=== PATIENT | male | born 1965 | race Two or more races ===

== ENCOUNTER 2017-10-08 06:15 | Emergency (ER) | payer SELFPAY ==
[2017-10-08 06:25] VITALS: BP 150/94; PULSE 82; RESP 20; TEMP 36.4; O2SAT 99; BMI 30.5
--- NOTE | 2017-10-08 06:32 | HMH.EDBACK ---
ED Disposition Clinical Impression: Right flank pain Disposition: Home, Self-Care Condition on Discharge: Good Instructions: DI for Low Back Pain Time of Disposition: 07:59 - Critical Care Critical Care Time: No Attestation: On , the high probability of a clinically significant, sudden or life threatening deterioration of the following system(s) required my full and direct attention, intervention and personal management. The time I documented below is in addition to time spent performing reported procedures but includes the following listed in this critical care notation. Medical Decision Making - Medical Records Medical records reviewed: Yes: I reviewed the patient's medical records. Vital Signs: 10/08/17 06:25 Temperature 97.5 F L Temperature Source Oral Pulse Rate [Right Radial] 82 Respiratory Rate 20 Blood Pressure [Right Arm] 150/94 Blood Pressure Mean [Right Arm] 112 Blood Pressure Source [Right Arm] Automatic Cuff Blood Pressure Position [Right Arm] Sitting 02 Sat by Pulse Oximetry 99 Oxygen Delivery Method Room Air - Lab Data Lab results reviewed: Yes: I reviewed the patient's lab results. Lab Results 10/08/17 06:55: WBC 7.5, RBC 5.19, Hgb 15.4, Hct 46.9, MCV 90.5, MCH 29.6, MCHC 32.8, RDW 12.5, Plt Count 343, MPV 7.6, Neut % (Auto) 65.7, Lymph % (Auto) 26.5, [place] % (Auto) 4.2, Eos % (Auto) 2.7, Baso % (Auto) 1.0, Neut # (Auto) 4.9, Lymph # (Auto) 2.0, [place] # (Auto) 0.3, Eos # (Auto) 0.2, Baso # (Auto) 0.1 10/08/17 06:55: Sodium 139, Potassium 4.2, Chloride 103, Carbon Dioxide 25, Anion Gap 15.2 H, BUN 18, Creatinine 1.12, Estimated Creat Clear 94, Estimated GFR 68, Est GFR ( Amer) 83, Glucose 209 H, Calcium 8.7, Total Bilirubin 0.4, AST 39 H, ALT 95 H, Alkaline Phosphatase 108, Total Protein 7.9, Albumin 4.2, Globulin 3.7 H, Albumin/Globulin Ratio 1.1, Amylase 66, Lipase 156 Result diagrams: 10/08/17 06:55 10/08/17 06:55 Orders (Tests/Meds): ED MEDICATIONS Generic Name Dose Route Start Last Admin Trade Name Freq PRN Reason Stop Dose Admin Lactated Ringer's 1,000 mls @ 999 mls/hr 10/08/17 08:00 Lactated Ringer's 1000 Ml Bag IV 10/08/17 09:00 .Q1H1M RON Discontinued Medications Generic Name Dose Route Start Last Admin Trade Name Freq PRN Reason Stop Dose Admin Lactated Ringer's 1,000 mls @ 999 mls/hr 10/08/17 06:45 10/08/17 06:47 Lactated Ringer's 1000 Ml Bag IV 10/08/17 07:45 999 mls/hr .Q1H1M RON Administration Ketorolac Tromethamine 30 mg 10/08/17 06:33 10/08/17 06:45 Toradol 30mg/Ml Vial IV 10/08/17 06:34 30 mg ONCE ONE Administration Morphine Sulfate 4 mg 10/08/17 06:34 10/08/17 06:47 Morphine 4mg/Ml Syringe IV 10/08/17 06:35 4 mg ONCE ONE Administration Ondansetron HCl 4 mg 10/08/17 06:33 10/08/17 06:43 Zofran 4mg/2ml Vial IV 10/08/17 06:34 4 mg ONCE ONE Administration ORDERS Category Date Time Status Urinalysis and Microscopic Stat Lab 10/08/17 06:33 Ordered - CT Data CT Scan: Abdomen, Pelvis Time Received: 08:[address] Reviewed: Yes: I have reviewed the patient's CT results Findings Narrative: Please refer to the radiologist's report - Jah Inquiry Pt receiving controlled substance: No - Reevaluation(s) Time: 08:00 Reevaluation #1: Care transferred to Dr. Al, pending urinalysis [facility] History I have reviewed the patient's past medical history: Yes Medical History: Reports:: Diabetes Mellitus Type 2 - *Social History Alcohol Intake: never - Psychiatric History Expresses thoughts of harming self/others: None Suicide Plan Description: No Plan ROS Obtained: Yes All systems reviewed & no additional complaints - Gastrointestinal Gastrointestingal: Reports: nausea, vomiting - Genitourinary Male Genitourinary: Reports flank pain (right) Physical Exam - General General appearance: alert, in distress (moderate) - Head Head exam: atraumatic, normocephalic, nor
--- NOTE | 2017-10-08 06:34 | CT_ITS ---
CT abdomen pelvis wo con CLINICAL INDICATION: Right flank pain and right lower quadrant pain with vomiting ITS.REASON: back pain ORDERING PHYSICIAN: Lavell Nguyen MD PATIENT AGE: 52 years COMPARISON: None TECHNIQUE: Axial images obtained with sagittal and coronal reformats. PROCEDURE: Oral Contrast: None IV Contrast: None . FINDINGS: Lower thorax: Small air bubbles noted in the right ventricle and could be due to recent venous catheterization. Gas is present in the distal esophagus suggesting reflux. Mild hepatic steatosis. No focal liver lesion demonstrated. The spleen, adrenal glands, pancreas, and gallbladder have an unremarkable unenhanced CT appearance. No obstructing renal or ureteral calculi. No hydronephrosis. There is mild thickening of the urinary bladder wall which may in part be due to nondistention. Prior appendectomy. Scattered diverticula are present within the descending and sigmoid colon with no evidence of diverticulitis. No intestinal obstruction or free air. No acute bony anomalies. IMPRESSION: No acute finding. No obstructing renal or ureteral calculi Nonacute findings as detailed above.
[2017-10-08 07:03] LABS: Basophils # 0.1 K/mm3 (0-0.2); Eosinophils # 0.2 K/mm3 (0.0-0.4); Eosinophils % 2.7 % (0.1-12.0); Hematocrit 46.9 % (42.0-52.0); Hemoglobin 15.4 g/dL (14.1-18.0); Lymphocytes % 26.5 K/mm3 (10-50); Mean Corpuscular HGB Conc 32.8 g/dL (31.8-35.4); Mean Corpuscular Hemoglobin 29.6 pg (27.0-31.2); Mean Corpuscular Volume 90.5 fl (80-94); Mean Platelet Volume 7.6 fl (7.4-10.4); Monocytes # 0.3 K/mm3 (0.1-1.0); Monocytes % 4.2 % (1.7-9.3); Neutrophils # 4.9 K/mm3 (1.8-7.8); Neutrophils % 65.7 % (37.0-80.0); Platelet Count 343 K/mm3 (142-424); Red Blood Count 5.19 M/mm3 (4.60-6.20); Red Cell Distribution Width 12.5 % (11.5-17.5); White Blood Count 7.5 K/mm3 (4.8-10.8)
[2017-10-08 07:15] LABS: Alanine Aminotransferase 95 U/L (12-78); Albumin Level 4.2 gm/dL (3.4-5.0); Albumin/Globulin Ratio 1.1 (1.1-1.8); Alkaline Phosphatase 108 U/L (46-116); Amylase 66 U/L (25-125); Anion Gap 15.2 mEq/L (5-15); Aspartate Amino Transferase 39 U/L (15-37); Bilirubin,Total 0.4 mg/dL (0.2-1.0); Blood Urea Nitrogen 18 mg/dL (7-18); Calcium 8.7 mg/dL (8.5-10.1); Carbon Dioxide 25 mmol/L (21.0-32.0); Chloride 103 mmol/L (98-107); Creatinine Clearance Estimated 94 mL/min (0-300); Creatinine,Serum 1.12 mg/dL (0.70-1.30); Estimated Glomerular Filt Rate 68 ml/min (>60); GFR (African American) 83 ML/MIN (>60); Globulin 3.7 gm/dl (1.3-3.2); Glucose 209 mg/dL (74-106); Lipase 156 u/L (73-393); Potassium 4.2 mmoL/L (3.5-5.1); Sodium 139 mmol/L (136-145); Total Protein,Serum 7.9 gm/dL (6.4-8.2)
[2017-10-08 09:01] LABS: Microscopic, Urine URINE MICROSCOPIC (MICROSCOPIC)
[2017-10-08 09:03] LABS: Appearance,Urine CLEAR (Clear); Bilirubin,Urine Negative (Negative); Blood, Urine LARGE (Negative); Color,Urine YELLOW (Yellow); Glucose,Urine (UA) Negative (Negative); Ketones,Urine Negative (Negative); Leukocyte Esterase,Urine Negative (Negative); Nitrate,Urine Negative (Negative); Protein,Urine TRACE (Negative); Specific Gravity, Urine 1.025 (1.005-1.030); Urobilinogen,Urine 0.2 EU/dl (0.2)
[2017-10-08 09:22] LABS: Bacteria,Urine 2+ /lpf; Calcium Oxalate Crystals,Urine Trace /lpf; Mucus,Urine 2+ /lpf; RBC,Urine 20-50 #/hpf (0-3); Squamous Epithelial Cell,Urine Occasional #/hpf (0-5); WBC,Urine Occasional #/hpf (0-3)
[2017-10-08 10:25] VITALS: BP 120/78; PULSE 63; RESP 20; TEMP 36.7; O2SAT 96
== END 2017-10-08 10:25 | disposition home or self-care (01) ==
PROVIDERS: Emergency Medicine; Emergency Provider Emergency Medicine; PCP Family Medicine
DX: R10.9 Unspecified abdominal pain (principal); E11.9 Type 2 diabetes mellitus without complications; Z79.84 Long term (current) use of oral hypoglycemic drugs; Z79.899 Other long term (current) drug therapy
CPT/HCPCS: 74176; 80053; 81001; 82150; 83690; 85025; 87086; 96365; 96375; 99282; 99283; J2405

== ENCOUNTER 2020-04-13 18:37 | Emergency (ER) | payer MEDICAID, SELFPAY ==
[2020-04-13 18:40] VITALS: BP 134/81; PULSE 100; RESP 16; TEMP 36.6; O2SAT 98; BMI 28.3
--- NOTE | 2020-04-13 18:43 | HMH.EDGENADL ---
ED Disposition Condition on Discharge: Fair - Critical Care Critical Care Time: No <AndreBoy vigil - Last Filed: 04/13/20 20:11> <Connor Song - Last Filed: 04/13/20 21:31> Clinical Impression: Acute kidney injury, Diabetes 1.5, managed as type 2 Vomiting Qualifiers: Vomiting type: unspecified Vomiting Intractability: non-intractable Nausea presence: with nausea Qualified Code(s): R11.2 - Nausea with vomiting, unspecified Leukocytosis Qualifiers: Leukocytosis type: unspecified Qualified Code(s): D72.829 - Elevated white blood cell count, unspecified Disposition: Home, Self-Care Instructions: DI for Nausea -- Adult Additional Instructions: call pcp wednesday and hold metformin wednesday and fluids Referrals: PCP,Skylar [Primary Care Provider] - Attestation: On 04/13/20, the high probability of a clinically significant, sudden or life threatening deterioration of the following system(s) required my full and direct attention, intervention and personal management. The time I documented below is in addition to time spent performing reported procedures but includes the following listed in this critical care notation. Medical Decision Making - Medical Records Medical records reviewed: Yes: I reviewed the patient's medical records. - Jah Inquiry Pt receiving controlled substance: No - Lab Data Result diagrams: 04/13/20 19:00 04/13/20 19:00 <Boy Holly - Last Filed: 04/13/20 20:11> - Lab Data Lab results reviewed: Yes: I reviewed the patient's lab results. Result diagrams: 04/13/20 19:00 04/13/20 19:00 - CT Data CT Scan: Abdomen, Pelvis Time Received: 20:[address] Reviewed: Yes: I have viewed the radiologist's interpretation Preliminary Findings: Normal/NAD <Connor Song - Last Filed: 04/13/20 21:31> Vital Signs: 04/13/20 18:40 04/13/20 19:19 04/13/20 19:30 Temperature 97.9 F Temperature Source Oral Pulse Rate [Left Radial] 100 H 88 Respiratory Rate 16 18 Blood Pressure [Right Arm] 134/81 119/81 118/80 Blood Pressure Mean [Right Arm] 98 93 92 Blood Pressure Source [Right Arm] Automatic Cuff Automatic Cuff Blood Pressure Position [Right Arm] Sitting Supine 02 Sat by Pulse Oximetry 98 99 99 Oxygen Delivery Method Room Air Room Air - Lab Data Lab Results 04/13/20 18:50: POC Glucose 167 H 04/13/20 19:00: WBC 17.5 H, RBC 5.86, Hgb 18.1 H, Hct 53.6 H, MCV 91.4, MCH 30.9, MCHC 33.7, RDW 13.1, Plt Count 332, MPV 7.5, Neut % (Auto) 86.5 H, Lymph % (Auto) 10.2, [place] % (Auto) 2.5, Eos % (Auto) 0.2, Baso % (Auto) 0.6, Neut # (Auto) 15.1 H, Lymph # (Auto) 1.8, [place] # (Auto) 0.4, Eos # (Auto) 0.0, Baso # (Auto) 0.1, Total Counted 100, Neutrophils % (Manual) 79 H, Band Neutrophils % 6.0, Lymphocytes % (Manual) 13, Monocytes % (Manual) 1 L, Eosinophils % (Manual) 1, Platelet Estimate Normal, RBC Morphology Normal 04/13/20 19:00: Sodium 147 H, Potassium 5.0, Chloride 102, Carbon Dioxide 23, Anion Gap 27.0 H, BUN 30 H, Creatinine 2.10 H, Estimated Creat Clear 46, Estimated GFR 33 L, Est GFR ( Amer) 40 L, Glucose 188 H, Calcium 11.5 H, Total Bilirubin 1.4 H, AST 42, ALT 50, Alkaline Phosphatase 151 H, Troponin I < 0.01, Total Protein 10.9 H, Albumin 5.8 H, Globulin 5.1 H, Albumin/Globulin Ratio 1.1 04/13/20 19:00: Amylase 121 H, Lipase 122 04/13/20 19:00: Acetone Level None detected 04/13/20 19:44: Urine Color Dk yellow, Urine Appearance Sl cloudy, Urine pH 5.5, Ur Specific [place] >= 1.030, Urine Protein 1+, Urine Glucose (UA) Negative, Urine Ketones 1+, Urine Blood Negative, Urine Nitrate Negative, Urine Bilirubin 1+ A, Urine Urobilinogen 0.2, Ur Leukocyte Esterase Negative, Urine WBC 5-10, Ur Squamous Epith Cells 3-5, Amorphous Sediment Trace, Hyaline Casts 20-50, Urine Mucus 1+ Orders (Tests/Meds): ED MEDICATIONS Generic Name Dose Route Start Last Admin Trade Name Freq PRN Reason Stop Dose Admin Sodium Chloride 1,000 mls @ 999 mls/hr 04/13/20 19:45 04/13/20 19:44 Sod C
[2020-04-13 18:53] LABS: POC Glucose,Bedside 167 (70-110)
--- NOTE | 2020-04-13 18:54 | ECG_ITS ---
APPROVED REPORT Exam: Resting ECG HR:82 bpm ECG Measurements Heart Rate 82 AXES WI 188 P 60 QRSd 96 QRS 20 QT 380 T -14 QTc 443 <Conclusion> Normal sinus rhythm T wave abnormality, consider inferior/lateral ischemia Abnormal ECG Electronically signed by : Andre York, 04/15/2020 09:08:14
[2020-04-13 19:19] VITALS: BP 119/81; O2SAT 99
[2020-04-13 19:26] LABS: Basophils # 0.1 K/mm3 (0-0.2); Basophils % 0.6 % (0.1-2.0); Eosinophils % 0.2 % (0.1-12.0); Lymphocytes # 1.8 K/mm3 (0.7-4.5); Lymphocytes % 10.2 % (10-50); Mean Corpuscular HGB Conc 33.7 g/dL (31.8-35.4); Mean Corpuscular Hemoglobin 30.9 pg (27.0-31.2); Mean Corpuscular Volume 91.4 fl (80-94); Mean Platelet Volume 7.5 fl (7.4-10.4); Monocytes # 0.4 K/mm3 (0.1-1.0); Monocytes % 2.5 % (1.7-9.3); Neutrophils # 15.1 K/mm3 (1.8-7.8); Neutrophils % 86.5 % (37.0-80.0); Platelet Count 332 K/mm3 (142-424); Red Blood Count 5.86 M/mm3 (4.60-6.20); Red Cell Distribution Width 13.1 % (11.5-17.5); White Blood Count 17.5 K/mm3 (4.8-10.8)
[2020-04-13 19:28] LABS: Alanine Aminotransferase 50 U/L (12-78); Albumin Level 5.8 g/dl (3.5-5.0); Albumin/Globulin Ratio 1.1 (1.1-1.8); Alkaline Phosphatase 151 U/L (38-126); Aspartate Amino Transferase 42 U/L (17-59); Bilirubin,Total 1.4 mg/dl (0.2-1.3); Blood Urea Nitrogen 30 mg/dl (9-20); Calcium 11.5 mg/dl (8.4-10.2); Carbon Dioxide 23 mmol/L (22.0-30.0); Chloride 102 mmol/L (98-107); Creatinine Clearance Estimated 46 mL/min (50-200); Estimated Glomerular Filt Rate 33 ml/min (>60); GFR (African American) 40 ML/MIN (>60); Globulin 5.1 g/dL (1.3-3.2); Glucose 188 mg/dl (74-100); Sodium 147 mmol/L (136-145); Total Protein,Serum 10.9 g/dl (6.3-8.2)
[2020-04-13 19:30] VITALS: BP 118/80; PULSE 88; RESP 18; O2SAT 99
[2020-04-13 19:34] LABS: Hematocrit 53.6 % (42.0-52.0); Hemoglobin 18.1 g/dL (14.1-18.0)
[2020-04-13 19:35] LABS: MANUAL DIFFERENTIAL MANUAL DIFFERENTIAL (MANUAL DIFF)
[2020-04-13 19:42] LABS: Eosinophils % 1 % (0-3); Lymphocytes % 13 % (10-50); Monocytes % 1 % (2-9); Neutrophils % 79 % (42-76); Platelet Estimate Normal; RBC Morphology Normal; Total Cells Counted 100
[2020-04-13 19:43] LABS: Troponin I < 0.01 ng/ml (0.00-0.034)
[2020-04-13 19:47] LABS: Microscopic, Urine URINE MICROSCOPIC (MICROSCOPIC)
--- NOTE | 2020-04-13 19:48 | CT_ITS ---
Procedure: CT ABDOMEN PELVIS WO CON Patient Age:54Y CLINICAL INDICATION: vomiting, leukocytosis COMPARISON: [facility] CT abdomen pelvis [facility] from 10/08/2017 TECHNIQUE: Axial images obtained with sagittal and coronal reformats. All CT scans at the facility use one or more dose reduction, viz: automated exposure control, ma/kV adjustment per patient size (including targeted exams where dose is matched to indication, i.e. head), or iterative reconstruction technique. FINDINGS: Lower thorax: Mild dependent atelectasis right lung base posteriorly. Heart normal to upper normal size. ABDOMEN: Liver: . No masses or biliary dilatation.Suggestion mild diffuse fatty changes Gallbladder: Nondistended. Minimal layering sludge noted. No radio opaque stones. No wall thickening or inflammation otherwise. Common duct normal. Pancreas: No masses or peripancreatic fluid collections. Spleen: unremarkable Adrenals: u unchanged. Unremarkable. tract Kidneys/ureters: No urinary tract calculi nor obstruction. Left kidney.: Small hyperdense focus measuring 9 mm at midportion left kidney. A similar feature seen in 2018 only very slightly larger today. Suspect most likely small hemorrhagic cyst. Follow-up CT in 6-9 months or ultrasound could additionally confirm Right kidney: Small 11 mm cyst right kidney mid portion PELVIS: Prostate mildly enlarged just over 5 cm transverse Bladder: Nondistended. Upper normal wall thickness most likely reflects its lack of distention although could reflect mild bladder wall hypertrophy or a cystitis. May benefit from UA/Correlation required. . No free fluid in the abdomen or pelvis but no free air. GI tract possible small hiatal hernia. Stomach: Generous wall thickness at greater curvature most likely reflects lack distension.. Small-bowel but normal caliber but unremarkable. Terminal ileum normal. Appendix is been surgically removed Large bowel. Moderate to generous stool throughout right colon; as well as moderate stool seen throughout the redundant sigmoid colon.. No bowel wall thickening .. A few diverticula sigmoid and left colon but no acute diverticulitis. Peritoneum: No abnormal fluid collections. No obvious inflammatory changes. No free air. Lymph nodes: No enlarged lymph nodes apparent. Vasculature: No evidence of abdominal aortic aneurysm... Bones: No acute fracture or findings. Incidental note prominent sacralization L5 on the right. Facet hypertrophy lower L-spine IMPRESSION: 1.No discrete acute findings abdomen or pelvis 2..mild diffuse bladder wall thickening appearance-mainly due to lack of distension, but may also reflect some mild bladder wall hypertrophy secondary to mildly enlarged prostate. Cannot exclude cystitis. Correlation required. UA may be of benefit 3.Other observations: . Incrementally larger round hyperdense focus left kidney, now measuring 9 mm. Suspect small hemorrhagic cyst but follow-up studies could fully confirm . Colonic diverticulosis scattered at sigmoid and left colon. No acute diverticulitis. . Appendix is been removed. . Dictated by: Nate Tran MD 04/13/2020 23:33 Electronically signed by Nate Tran MD in [place] 04/13/2020 23:33
[2020-04-13 19:49] LABS: Appearance,Urine SL CLOUDY (Clear); Blood, Urine Negative (Negative); Color,Urine DK YELLOW (Yellow); Glucose,Urine (UA) Negative (Negative); Ketones,Urine 1+ (Negative); Leukocyte Esterase,Urine Negative (Negative); Nitrate,Urine Negative (Negative); PH,Urine 5.5 (5.0-8.5); Protein,Urine 1+ (Negative); Specific Gravity, Urine >= 1.030 (1.005-1.030); Urobilinogen,Urine 0.2 EU/dl (0.2)
[2020-04-13 19:54] LABS: Bilirubin,Urine 1+ (Negative)
[2020-04-13 19:55] LABS: Amorphous Sediment,Urine Trace /lpf; Hyaline Casts,Urine 20-50 #/lpf (0); Mucus,Urine 1+ /lpf
[2020-04-13 20:04] LABS: Amylase 121 U/L (30-110); Lipase 122 U/L (23-300)
[2020-04-13 20:30] VITALS: BP 121/76; PULSE 81; RESP 16; O2SAT 97
[2020-04-13 20:56] LABS: Acetone, Serum (Rapid) None Detected (None Detect)
--- NOTE | 2020-04-13 21:44 | PC.NURSE ---
Spoke with Zelda in Pharmacy and it is recommended that pt hold Metformin until cleared by PCP
[2020-04-13 21:51] VITALS: BP 114/63; PULSE 76; RESP 16; TEMP 36.6; O2SAT 98
[2020-04-13 21:54] LABS: Hemoglobin A1C 6.4 % (4.0-6.0)
== END 2020-04-13 21:55 | disposition home or self-care (01) ==
PROVIDERS: Emergency Medicine; Emergency Provider Emergency Medicine
DX: N17.9 Acute kidney failure, unspecified (principal); D72.829 Elevated white blood cell count, unspecified; E13.9 Other specified diabetes mellitus without complications; Z79.84 Long term (current) use of oral hypoglycemic drugs; Z88.0 Allergy status to penicillin; Z88.5 Allergy status to narcotic agent
CPT/HCPCS: 74176; 80053; 81001; 82009; 82150; 82962; 83036; 83690; 84484; 85007; 85025; 93005; 96365; 96366; 96375; 99283; 99284; J2405

== ENCOUNTER 2021-05-12 13:07 | Observation (INO) | payer SELFPAY ==
[2021-05-12] VITALS (11 sets, daily range): BP systolic 110–159; BP diastolic 61–87; PULSE 86–118; RESP 15–22; TEMP 36.7–36.8; O2SAT 94–99; BMI 29.2
--- NOTE | 2021-05-12 13:02 | ECG_ITS ---
APPROVED REPORT Exam: Resting ECG HR:117 bpm ECG Measurements Heart Rate 117 AXES AK 164 P 68 QRSd 92 QRS 24 QT 326 T 36 QTc 454 Conclusion Sinus tachycardia Otherwise normal ECG Electronically signed by : Joselito Yancey MD 05/12/2021 18:01:13
--- NOTE | 2021-05-12 13:14 | XR_ITS ---
PROCEDURE: XR CHEST PORTABLE CLINICAL HISTORY: cough COMPARISON: No exams were available for comparison FINDINGS: The cardiomediastinal silhouette and pulmonary vascularity are within normal limits. The lungs are clear without infiltrates, suspicious nodules, or pleural effusions. No acute bony abnormalities. IMPRESSION: No acute findings. Dictated by: Colby Reyes MD 05/12/2021 13:48 Colby Reyes MD in [place] 05/12/2021 13:48
[2021-05-12 13:45] LABS: Basophils # 0.3 K/mm3 (0-0.2); Basophils % 1.4 % (0.1-2.0); Eosinophils % 0.2 % (0.1-12.0); Hematocrit 50.7 % (42.0-52.0); Hemoglobin 17.1 g/dL (14.1-18.0); Lymphocytes # 1.9 K/mm3 (0.7-4.5); Lymphocytes % 9.7 % (10-50); Mean Corpuscular HGB Conc 33.7 g/dL (31.8-35.4); Mean Corpuscular Hemoglobin 30.9 pg (27.0-31.2); Mean Corpuscular Volume 91.6 fl (80-94); Mean Platelet Volume 8.6 fl (7.4-10.4); Monocytes # 0.7 K/mm3 (0.1-1.0); Monocytes % 3.7 % (1.7-9.3); Neutrophils # 16.2 K/mm3 (1.8-7.8); Platelet Count 302 K/mm3 (142-424); Red Blood Count 5.54 M/mm3 (4.60-6.20); Red Cell Distribution Width 12.9 % (11.5-17.5)
[2021-05-12 13:55] LABS: Chloride 98 mmol/L (98-107); MANUAL DIFFERENTIAL MANUAL DIFFERENTIAL (MANUAL DIFF); Potassium 5.3 mmoL/L (3.5-5.1); Sodium 140 mmol/L (136-145)
[2021-05-12 13:57] LABS: Alanine Aminotransferase 94 U/L (12-78); Aspartate Amino Transferase 68 U/L (17-59); Blood Urea Nitrogen 21 mg/dl (9-20); Creatinine Clearance Estimated 61 mL/min (50-200); Estimated Glomerular Filt Rate 45 ml/min (>60); GFR (African American) 54 ML/MIN (>60)
[2021-05-12 13:58] LABS: Albumin Level 5.3 g/dl (3.5-5.0); Albumin/Globulin Ratio 1.2 (1.1-1.8); Alkaline Phosphatase 156 U/L (38-126); Anion Gap 22.3 mEq/L (5-15); Calcium 10.7 mg/dl (8.4-10.2); Carbon Dioxide 25 mmol/L (22.0-30.0); Globulin 4.5 g/dL (1.3-3.2); Glucose 302 mg/dl (74-100); Total Protein,Serum 9.8 g/dl (6.3-8.2)
[2021-05-12 14:11] LABS: Troponin I 0.02 ng/ml (0.00-0.034)
--- NOTE | 2021-05-12 14:28 | PC.NURSE ---
PT VOMITED BRIGHT YELLOW APPROX 150ML , MEDS GIVEN FOR VOMITING . FAMILY UPDATED
--- NOTE | 2021-05-12 14:42 | HMH.EDCP ---
ED Disposition Clinical Impression: Chest pain, moderate coronary artery risk, Acute kidney injury, Diabetes 1.5, managed as type 2, Hyperkalemia Leukocytosis Qualifiers: Leukocytosis type: unspecified Qualified Code(s): D72.829 - Elevated white blood cell count, unspecified Disposition: Admitted As Inpatient Condition on Discharge: Fair Referrals: Provider,Account, PHARMD [Primary Care Provider] - - Critical Care Critical Care Time: No Attestation: On 05/12/21, the high probability of a clinically significant, sudden or life threatening deterioration of the following system(s) required my full and direct attention, intervention and personal management. The time I documented below is in addition to time spent performing reported procedures but includes the following listed in this critical care notation. Medical Decision Making - Medical Records Medical records reviewed: Yes: I reviewed the patient's medical records. - Jah Inquiry Pt receiving controlled substance: No Vital Signs: 05/12/21 13:08 05/12/21 14:30 05/12/21 15:01 Temperature 98.3 F Temperature Source Oral Pulse Rate 103 H 101 H Pulse Rate [Left] 118 H Respiratory Rate 18 19 15 Blood Pressure 117/81 123/85 Blood Pressure [Right Arm] 110/61 Blood Pressure Mean 91 97 Blood Pressure Mean [Right Arm] 77 02 Sat by Pulse Oximetry 98 99 96 Oxygen Delivery Method Room Air 05/12/21 15:30 05/12/21 16:00 05/12/21 16:30 Temperature Temperature Source Pulse Rate 101 H 93 H 101 H Pulse Rate [Left] Respiratory Rate 22 18 Blood Pressure 119/85 125/78 126/87 Blood Pressure [Right Arm] Blood Pressure Mean 92 91 95 Blood Pressure Mean [Right Arm] 02 Sat by Pulse Oximetry 97 97 95 Oxygen Delivery Method 05/12/21 17:00 05/12/21 17:30 Temperature Temperature Source Pulse Rate 96 H Pulse Rate [Left] Respiratory Rate Blood Pressure 122/82 114/79 Blood Pressure [Right Arm] Blood Pressure Mean 89 85 Blood Pressure Mean [Right Arm] 02 Sat by Pulse Oximetry 96 94 L Oxygen Delivery Method - Lab Data Lab Results 05/12/21 13:09: WBC 19.0 H, RBC 5.54, Hgb 17.1, Hct 50.7, MCV 91.6, MCH 30.9, MCHC 33.7, RDW 12.9, Plt Count 302, MPV 8.6, Neut % (Auto) 85.0 H, Lymph % (Auto) 9.7 L, [place] % (Auto) 3.7, Eos % (Auto) 0.2, Baso % (Auto) 1.4, Neut # (Auto) 16.2 H, Lymph # (Auto) 1.9, [place] # (Auto) 0.7, Eos # (Auto) 0.0, Baso # (Auto) 0.3 H, Total Counted 100, Neutrophils % (Manual) 83 H, Lymphocytes % (Manual) 10, Monocytes % (Manual) 7, Platelet Estimate Normal, Spherocytes 1+ 05/12/21 13:09: Sodium 140, Potassium 5.3 H, Chloride 98, Carbon Dioxide 25, Anion Gap 22.3 H, BUN 21 H, Creatinine 1.60 H, Estimated Creat Clear 61, Estimated GFR 45 L, Est GFR ( Amer) 54 L, Glucose 302 H, Calcium 10.7 H, Total Bilirubin 1.0, AST 68 H, ALT 94 H, Alkaline Phosphatase 156 H, Troponin I 0.02, NT-Pro-B Natriuret Pep 60.0, Total Protein 9.8 H, Albumin 5.3 H, Globulin 4.5 H, Albumin/Globulin Ratio 1.2 05/12/21 16:17: Troponin I 0.04 H 05/12/21 16:17: Total Creatine Kinase 62 05/12/21 16:17: Potassium 5.0 Result diagrams: 05/12/21 13:09 05/12/21 16:17 Orders (Tests/Meds): ED MEDICATIONS Generic Name Dose Route Start Last Admin Trade Name Freq PRN Reason Stop Dose Admin Insulin Human Regular 6 unit 05/12/21 18:33 Insulin Human Regular 100 Units/Ml 10ml Vial IVP 05/12/21 18:34 ONCE ONE Discontinued Medications Generic Name Dose Route Start Last Admin Trade Name Freq PRN Reason Stop Dose Admin Sodium Chloride 1,000 mls @ 999 mls/hr 05/12/21 14:15 05/12/21 14:18 Sod Chlor 0.9% 1000ml Bag IV 05/12/21 15:15 999 mls/hr .Q1H1M RON Administration Promethazine HCl 25 mg 05/12/21 14:03 05/12/21 14:18 Promethazine Hcl 25mg/Ml 1ml Vial IV 05/12/21 14:04 25 mg ONCE ONE Administration Sodium Chloride 25 ml 05/12/21 14:03 05/12/21 14:19 Sodium Chloride 0.9% 25ml Bag IV
[2021-05-12 15:12] LABS: Lymphocytes % 10 % (10-50); Monocytes % 7 % (2-9); Neutrophils % 83 % (42-76); Spherocytes 1+; Total Cells Counted 100
[2021-05-12 15:13] LABS: Platelet Estimate Normal
[2021-05-12 16:47] LABS: Troponin I 0.04 ng/ml (0.00-0.034)
[2021-05-12 17:15] LABS: Creatine Kinase 62 U/L (55-170)
--- NOTE | 2021-05-12 17:42 | PC.NURSE ---
Gave status update to patient's per patient request
[2021-05-12 17:52] LABS: Coronavirus 19, PCR Not Detected (NotDetected); Influenza A, PCR Not Detected (NotDetected); Influenza B, PCR Not Detected (NotDetected)
--- NOTE | 2021-05-12 18:15 | PC.NURSE ---
SPEAKING TO DR ASH ABOUT POSSIBLE ADMISSION
--- NOTE | 2021-05-12 18:37 | PC.NURSE ---
Accucheck performed, result was 176. advised to cancel insulin order.
--- NOTE | 2021-05-12 18:39 | PC.NURSE ---
HOUSE NOTIFIED ABOUT ADMISSION
[2021-05-12 18:40] LABS: Acetone, Serum (Rapid) None Detected (None Detect)
[2021-05-12 18:43] LABS: POC Glucose,Bedside 176 (70-110)
[2021-05-12 18:44] LABS: VBG Base Excess -3.8 mmol/L (-2.4-2.3); VBG HCO3 23.8 mmol/L (23-30); VBG Oxygen Saturation 43.2 % (50-70); VBG PCO2 58.4 mmol/L (35-51); VBG PH 7.23 mmol/L (7.31-7.41); VBG PO2 29.8 mmol/L (28-40); VBG Total CO2 25.6 mmol/L (23-27)
--- NOTE | 2021-05-12 19:31 | PC.NURSE ---
Attempted to call report Nurse not available at this time
--- NOTE | 2021-05-12 19:51 | PC.NURSE ---
PT ARRIVED TO FLOOR VIA W/C FROM ED W/STAFF AT 1951
[2021-05-12 20:06] LABS: Troponin I 0.03 ng/ml (0.00-0.034)
[2021-05-12 20:19] LABS: POC Glucose,Bedside 203 (70-110)
[2021-05-13] VITALS (18 sets, daily range): BP systolic 96–127; BP diastolic 55–83; PULSE 55–90; RESP 16–20; TEMP 36.5–36.8; O2SAT 96–100
--- NOTE | 2021-05-13 | IR_ITS ---
APPROVED REPORT Patient Location: Inpatient Film Library Clerk: CHAZ Wagner RT (R) PROCEDURES Left heart catheterization Left ventriculogram Selective coronary angiogram Informed consent was obtained prior to the procedure. COMPLICATIONS None Estimated Blood Loss: Less than 10 mls TECHNIQUE One percent lidocaine used to anesthetize the right anterior aspect of the wrist. The right radial artery was accessed via the Seldinger technique. A 6 Setswana sheath was placed in the right radial artery. 2.5 mg of verapamil, 800 mcg of nitroglycerin, 1mg Lidocaine and 5000 U Heparin were given through the arterial sheath. The trap catheter was also used to perform left heart catheterization, left ventriculogram and selective coronary angiogram. At the end of the procedure the sheath was removed good hemostasis was achieved using Traclet band, patient was transferred to the postop holding area in stable condition. ANGIOGRAPHIC RESULTS The left main artery Normal The left anterior descending artery Normal The circumflex artery Normal The right coronary artery Dominant normal The MAYA ventriculogram reveals Normal 65% The left ventricular end-diastolic pressure 10 mmHg IMPRESSION Normal coronary arteries Normal ejection fraction Normal left ventricular end-diastolic pressure PLAN 1. Evaluation of noncardiac chest pain Electronically signed by : Constantine Strong MD 05/13/2021 13:48:37
--- NOTE | 2021-05-13 03:41 | PC.NURSE ---
PT RESTING COMFORTABLY IN BED, WATCHING TV. DENIES CP, DENIES SOA. PT AMBULATED INDEPENDENTLY TO BATHROOM WITH STEADY GAIT. VS REMAIN STABLE. TELEMETRY REMAINS IN PLACE. WILL CONTINUE TO MONITOR.
[2021-05-13 05:51] LABS: POC Glucose,Bedside 165 (70-110)
[2021-05-13 06:19] LABS: Basophils # 0.1 K/mm3 (0-0.2); Basophils % 0.7 % (0.1-2.0); Eosinophils # 0.1 K/mm3 (0.0-0.4); Eosinophils % 0.7 % (0.1-12.0); Lymphocytes # 2.4 K/mm3 (0.7-4.5); Lymphocytes % 23.1 % (10-50); Mean Corpuscular HGB Conc 33.2 g/dL (31.8-35.4); Mean Corpuscular Hemoglobin 30.7 pg (27.0-31.2); Mean Corpuscular Volume 92.4 fl (80-94); Mean Platelet Volume 8.1 fl (7.4-10.4); Monocytes # 0.4 K/mm3 (0.1-1.0); Monocytes % 4.1 % (1.7-9.3); Neutrophils # 7.4 K/mm3 (1.8-7.8); Neutrophils % 71.4 % (37.0-80.0); Platelet Count 236 K/mm3 (142-424); Red Blood Count 4.76 M/mm3 (4.60-6.20); Red Cell Distribution Width 13.1 % (11.5-17.5); White Blood Count 10.3 K/mm3 (4.8-10.8)
--- NOTE | 2021-05-13 06:21 | PC.NURSE ---
Marissa RODRÍGUEZ NOTIFIED OF CONSULTS
[2021-05-13 06:24] LABS: Hemoglobin 14.6 g/dL (14.1-18.0)
[2021-05-13 06:35] LABS: Chloride 106 mmol/L (98-107); Potassium 4.4 mmoL/L (3.5-5.1); Sodium 141 mmol/L (136-145)
[2021-05-13 06:38] LABS: Alanine Aminotransferase 81 U/L (12-78); Albumin Level 4.2 g/dl (3.5-5.0); Albumin/Globulin Ratio 1.4 (1.1-1.8); Alkaline Phosphatase 113 U/L (38-126); Anion Gap 14.4 mEq/L (5-15); Aspartate Amino Transferase 63 U/L (17-59); Blood Urea Nitrogen 23 mg/dl (9-20); Carbon Dioxide 25 mmol/L (22.0-30.0); Creatinine Clearance Estimated 109 mL/min (50-200); Estimated Glomerular Filt Rate 87 ml/min (>60); GFR (African American) 105 ML/MIN (>60); Globulin 3.1 g/dL (1.3-3.2); Total Protein,Serum 7.3 g/dl (6.3-8.2)
[2021-05-13 06:39] LABS: Glucose 182 mg/dl (74-100)
--- NOTE | 2021-05-13 07:21 | HMH.PHAVTE ---
[facility] Pharmacy VTE Monitoring - Patient Demographics Admission date: 05/12/21 Report Date: 05/13/21 Time: 07:21 Allergies/Adverse Reactions: Patient Allergies hydrocodone Allergy (Verified 10/08/17 06:36) Penicillins Allergy (Verified 10/08/17 06:36) Height: 1.7 m Weight: 84.822 kg Patient Problems: Current Active Problems Acute kidney injury (Acute) Leukocytosis (Acute) Diabetes 1.5, managed as type 2 (Acute) Chest pain, moderate coronary artery risk (Acute) Hyperkalemia (Acute) - VTE Risk Labs: VTE Related Lab Results Hgb 14.6 g/dL (14.1-18.0) D 05/13/21 05:38 Hct 44.0 % (42.0-52.0) 05/13/21 05:38 Plt Count 236 K/mm3 (142-424) 05/13/21 05:38 BUN 23 mg/dl (9-20) H 05/13/21 05:38 Creatinine 0.90 mg/dl (0.66-1.25) D 05/13/21 05:38 Estimated Creat Clear 109 mL/min (50-200) 05/13/21 05:38 Was VTE Risk Assessment Performed: Yes VTE Score: 2 VTE Risk Level: Very Low Risk Clinical Trial Participant: No - Prophylaxis VTE Prophylaxis Ordered?: Yes Types of VTE Prophylaxis: TEDS Knee High
--- NOTE | 2021-05-13 07:31 | CA_ITS ---
APPROVED REPORT EXAM: Comprehensive 2D, Doppler, and color-flow Echocardiogram Ingredient Scaler: Ramonita Miller, BAO, RVS Ht: 5 ft 7 in Wt: 187lbs BSA: 1.97 BP: 000/00 mmHg Indications: CP, DM, BI, dehydration, Heat stroke HX 2D Dimensions IVSd 0.95 cm LVEF (Visual) 84.80 % PWd 0.84 cm LA Volume 24.40 mL LVDd 5.54 cm LA Volume Index 12.40 mL/m2 (M/F) 16-34 LVDs 2.52 cm LVOT 1.99 cm (M/F) 1.5-2.5 M-Mode Dimensions LA Diam 2.82 cm (1.9-4.0) Ao Diam 3.62 cm (2.0-3.7) EPSs 0.80 cm TAPSE 2.64 (<1.7) LV Diastology E Decel Time 213.00 (160-240 msec) E/A Ratio 0.95 MED E' 7.50 (< 7 cm/sec) MED A' 11.30 cm/s E'/MED E' Ratio 8.63 (>14) LAT E' 8.90 (<10 cm/sec) LAT A' 12.80 cm/s E/LAT E' Ratio 7.27 (>14) Aortic Valve LVOT Max 79.00 (70-110 cm/s) LVOT VTI 14.84 cm AoV Peak Juan Luis. 116.00 (50-130 cm/s) AO Peak GR. 5.40 mmHg AO Mean GR. 2.70 (<5 mmHg) AO VTI 20.46 (18-25 cm) ANIA (VTI) 2.26 (2.5-4.5 cm2) Mitral Valve MV A Velocity 68.00 (40-130 cm/s) E/A Ratio 0.95 MV Decel. Time 213.00 (160-240 ms) Pulmonary Valve PV Peak Velocity 123.00 (50-150 cm/s) Tricuspid Valve TR P. Velocity 142.00 cm/s RAP Estimate 10.00 mmHg RVSP 18.10 mmHg Left Ventricle Left atrium normal size, left ventricle is normal size, visually estimated ejection fraction 55% with no regional wall motion abnormality. Diastolic parameters are inconclusive in the study. Right Ventricle Right atrium and right ventricle are normal size and contractility. Aortic Valve Aortic valve is minimally thickened and fibrosed. There is no aortic stenosis or aortic insufficiency. Mitral Valve Mitral valve grossly normal, there is trace mitral regurgitation. Tricuspid Valve Tricuspid grossly normal, there is trace tricuspid regurgitation, tricuspid regurgitation jet velocity is inadequate for calculation of the right ventricular systolic pressure. Pulmonic Valve Pulmonic valve is poorly visualized. Great Vessels Aortic root is normal size. Pericardium No significant pericardial effusion noted. Conclusion 1. Normal left ventricular size, preserved left ventricular systolic function, visually estimated ejection fraction 55% with no regional wall motion abnormality. Diastolic parameters are inconclusive. 2. Trace mitral and tricuspid regurgitation. 3. No significant pericardial effusion noted. Electronically signed by : Francesco Gregorio MD 05/13/2021 18:24:30
--- NOTE | 2021-05-13 07:48 | HMH.PHAINT ---
MEDICATION RECONCILIATION COMPLETE USING PATIENT INTERVIEW AND PHARMACY FILL HISTORY.
--- NOTE | 2021-05-13 07:59 | PC.NURSE ---
Echo at bedside now
--- NOTE | 2021-05-13 08:01 | CA_ITS ---
APPROVED REPORT Exam: Exercise Treadmill Technologist: Mickie Spaulding Ht: 5 ft 7 in Wt: 187 lbs BSA: 1.97 m2 HR: 73 bpm BP: 117/70 mmHg Indications: Chest pain Medical History Medications: Omeprazole,,,,, Metformin,,,,, Vitamin D3,,,,, OmeGA 3,,,,, SaW [place],,,,, Stress Test Details Test: Shantanu HR Resting HR: 79 bpm Max Heart Rate (APMHR): 163.185818 bpm Max HR Achieved: 123 bpm Target HR (85% APMHR): 138.217971 bpm % of APMHR: 75.46 Recovery HR: 85 bpm BP Resting BP: 117.0/70.0 mmHg Max BP: 162.0/88.0 mmHg Recovery BP: 143.0/97.0 mmHg ECG Resting ECG: Normal sinus rhythm, ST-T abnormalities inferiorly and laterally. Clinical Exercise duration: 09:00 min Highest Stage Achieved: Exercise capacity: 10.1 METs Stress ECG Conclusion Patient exercised 9:00 on Shantanu Protocol. Test stopped due to shortness of air and chest pain. Symptoms: Shortness of air, chest tightness, fatigue. Arrhythmias/Ectopy: None ST-T Changes: Compared to baseline, there are no significant changes. Conclusion: Non-diagnostic GXT due to baseline EKG abnormalities. Myoview images reported separately. Test Summary Stage 3 01:00 14.0 3.4 120 . . . chest tightness REST . . . . . . . Standing REST 05:54 0.0 0.0 79 . 117/ 70 . . Stage 1 01:00 10.0 1.7 100 . . . . Stage 1 02:00 10.0 1.7 104 . . . . Stage 1 03:00 10.0 1.7 106 . 158/ 86 . . Stage 2 01:00 12.0 2.5 108 . . . . Stage 2 02:00 12.0 2.5 109 . . . . Stage 2 03:00 12.0 2.5 108 . 162/ 88 . . Stage 3 . . . . . . . chest tightness Stage 3 01:00 14.0 3.4 120 . . . . Stage 3 . . . . . . . Myoview Injected Stage 3 02:00 14.0 3.4 121 . . . . Stage 3 03:00 14.0 3.4 122 . . . Stop exercise at 09:00 RECOVERY 01:00 0.0 0.0 111 . 148/ 90 . . RECOVERY 02:00 0.0 0.0 100 . 148/ 90 . . RECOVERY 03:00 0.0 0.0 88 . 150/ 90 . . RECOVERY 04:00 0.0 0.0 95 . 150/ 90 . . RECOVERY 05:00 0.0 0.0 100 . 152/ 95 . . RECOVERY 06:00 0.0 0.0 89 . 152/ 95 . . RECOVERY 06:25 0.0 0.0 95 . 143/ 97 . . Electronically signed by : Francesco Gregorio MD 05/13/2021 19:07:22
--- NOTE | 2021-05-13 08:01 | NM_ITS ---
APPROVED REPORT Exam: Nuclear Stress Test Indication: Chest pain, DM Patient Location: Inpatient Stress Tech: Mickie Spaulding OR Tech:CHAZ Dodson, RT (R)(N) Ht: 5 ft 7 in Wt: 187 lbs HR: 73 bpm BP: 117/70 mmHg BSA: 1.97 m2 BMI: 29.2 History: Chest pain, DM Procedure: Patient exercised on Shantanu protocol 9:00 minutes and sec, resting heart rate 73 bpm, resting blood pressure 117/70 mmHg, with exercise maximum heart rate achived was 123 bpm which is 75 % of the maximum predicted heart rate and blood pressure was 162/88 mmHg. Test was stopped due to chest tightness. Patient has exercise capacity, achieved 10.1 METs of workload on treadmill, the blood pressure response to exercise was . Cardiac Stress and Resting SPECT Images: Cardiac Stress and Resting SPECT images were obtained using technetium 99m Myoview 29.4 mCi stress and 9.36 mCi at rest. EF low at 40% with hypokinesia of the anterior wall and inferior wall Small reversible defect at the apex Fixed defect in inferior wall and small reversible defect in the anteroseptal region Conclusion: Abnormal Low EF with fixed and reversible defects as described above Electronically signed by : Colby Reyes MD 05/13/2021 11:34:15
--- NOTE | 2021-05-13 08:20 | PC.NURSE ---
PATIENT OFF FLOOR FOR STRESS TEST NOW.
--- NOTE | 2021-05-13 08:29 | HMH.CNCARD ---
History of Present Illness Consult date: 05/13/21 Requesting physician: Jason Mccormack Consult reason: chest pain Chief complaint: chest pain Additional Medical History:: 1. DM, treated for 6 yrs. 2. Remote tobacco and alcohol use both discontinued 26 years ago 3. History of acid reflux for which he takes omeprazole daily 4. Chest pain, 05/12/2021 5. History of diverticulosis History of present illness: 55-year-old male presented to the emergency department with some chest discomfort. Patient states that has been there for the last 5 hours or so. Patient states that he was outside working in the heat he started getting some tightness in his chest. Patient states that he has had this many times before. States that he has not had many heat strokes in the past. Patient states that he sat down and his symptoms got slightly better. He has a longstanding history of diabetes. States that he is compliant with his medication. States that the pain is more of a tightness and dullness located across his chest. Nonradiating. No associated shortness of breath, cough or hemoptysis. Denies any fevers or chills. No headache or change in vision. No focal weakness. No abdominal pain. States that he did vomit one time. No diarrhea. The above per CHRISTEL Manjarrez MD. Patient confirms the events as noted above but states the symptoms went there for least 3 hours. He does report vomiting at least twice prior to coming to the ER. Symptoms slowly resolved over the next 2 to 3 hours after being given an aspirin and Phenergan IV. He does relate indigestion symptoms with spicy foods. [facility] History Medical History: Reports:: Diabetes Mellitus Type 2 *Have you ever received a pneumonia vaccine?: No *Have you received a flu vaccine this season?: Yes Other Surgeries: Yes: Appendectomy - *Social History Smoking Status: Never smoker Alcohol Intake: never *Occupational Status:: employed Household Members: spouse *Travel in the last 8 weeks: None Family Hx:: No significant family history Meds Home Medications Medication Instructions Recorded Confirmed Type Ascorbic Acid [Vitamin C] 1,000 mg PO HS 10/08/17 05/12/21 History Cholecalciferol (Vitamin D3) 3,000 unit PO DAILY 10/08/17 05/12/21 History [Vitamin D3] Omeprazole [Omeprazole 20mg 20 mg PO HS 10/08/17 05/12/21 History Capsule] Garlic 1 each PO HS 05/12/21 05/12/21 History [place]-3 Fatty Acids/Fish Oil [Fish 1 each PO DAILY 05/12/21 05/12/21 History Oil 1,000 mg Capsule] Metformin HCl [Metformin HCl ER] 1,500 mg PO BID 05/13/21 05/13/21 History Naproxen 1,000 mg PO BID 05/13/21 05/13/21 History Saw [place] 1 cap PO DAILY 05/13/21 05/13/21 History Allergies Allergy/AdvReac Type Severity Reaction Status Date / Time hydrocodone Allergy Verified 10/08/17 06:36 Penicillins Allergy Verified 10/08/17 06:36 Exam Vital signs and Labs for Last 24 Hours: Temp Pulse Resp BP Pulse Ox 97.7 F 73 18 127/72 100 05/13/21 08:00 05/13/21 08:00 05/13/21 08:00 05/13/21 08:00 05/13/21 08:00 Laboratory Results - last 24 hr 05/12/21 13:09: WBC 19.0 H, RBC 5.54, Hgb 17.1, Hct 50.7, MCV 91.6, MCH 30.9, MCHC 33.7, RDW 12.9, Plt Count 302, MPV 8.6, Neut % (Auto) 85.0 H, Lymph % (Auto) 9.7 L, [place] % (Auto) 3.7, Eos % (Auto) 0.2, Baso % (Auto) 1.4, Neut # (Auto) 16.2 H, Lymph # (Auto) 1.9, [place] # (Auto) 0.7, Eos # (Auto) 0.0, Baso # (Auto) 0.3 H, Total Counted 100, Neutrophils % (Manual) 83 H, Lymphocytes % (Manual) 10, Monocytes % (Manual) 7, Platelet Estimate Normal, Spherocytes 1+ 05/12/21 13:09: Sodium 140, Potassium 5.3 H, Chloride 98, Carbon Dioxide 25, Anion Gap 22.3 H, BUN 21 H, Creatinine 1.60 H, Estimated Creat Clear 61, Estimated GFR 45 L, Est GFR ( Amer) 54 L, Glucose 302 H, Calcium 10.7 H, Total Bilirubin 1.0, AST 68 H, ALT 94 H, Alkaline Phosphatase 156 H, Troponin I 0.02, NT-Pro-B Natriuret Pep 60.0, Total Protein 9.8 H, Albumin 5.3 H, Globu
--- NOTE | 2021-05-13 09:11 | HMH.HP ---
*Admission Date: 05/12/21 <Hemalatha Oquendo - 05/13/21 09:29> *Chief complaint: Chest pain <Hemalatha Oquendo - 05/13/21 09:29> *History of present illness: Mr. Longo is a 55-year-old male with a history of GERD and previous heat strokes. He presented to the emergency room after experiencing nonradiating midsternal chest pain. He denies being short of breath at this time. He did vomit numerous times during this discomfort and after being in the emergency room. After receiving medication in the ER his pain and nausea were relieved. He has had no further chest discomfort, nausea or vomiting. He continues to deny shortness of breath. HPI narrative in [facility] ER: 55-year-old male presented to the emergency department with some chest discomfort. Patient states that has been there for the last 5 hours or so. Patient states that he was outside working in the heat he started getting some tightness in his chest. Patient states that he has had this many times before. States that he has not had many heat strokes in the past. Patient states that he sat down and his symptoms got slightly better. He has a longstanding history of diabetes. States that he is compliant with his medication. States that the pain is more of a tightness and dullness located across his chest. Nonradiating. No associated shortness of breath, cough or hemoptysis. Denies any fevers or chills. No headache or change in vision. No focal weakness. No abdominal pain. States that he did vomit one time. No diarrhea. On reevaluation, the patient continues to endorse some mild chest discomfort. He states that it is intermittent in nature. He did vomit additional time in the emergency department. Troponin has elevated on repeat 3-hour. However no EKG changes. Patient also has some significant renal dysfunction. Likely from dehydration as well as his chronic diabetes. Patient's hyperkalemia did improve with fluids. We did provide insulin. Patient be admitted to hospital for further evaluation and treatment. The above is per ER documentation. With evaluation in the emergency room his initial CBC revealed a white blood cell count of 19,000 and this a.m. is 10,300. Hemoglobin /hematocrit are normal. Blood chemistries show a sodium of 140 and a potassium of 5.3 with a BUN of 21 and creatinine 1.6. Troponin I's were 0.02, 0.04 and 0.03. Liver function studies were elevated with an AST of 68 and ALT of 94. He did receive a liter of IV fluids in the ER and this morning electrolytes are normal with a BUN of 23 and a creatinine of 0.9. Liver function studies are somewhat better with an AST of 63 and an ALT of 81.Chest x-ray showed no acute findings. EKG showed sinus tach and otherwise normal EKG. Echocardiogram is pending. He has been seen by cardiology with the following documentation: Assessment and Plan for all problems:: 1. Chest pain with minimal elevated troponin during acute renal insufficiency. Troponins have returned to normal along with his renal functions with IV fluids. Due to the patient's longstanding history of diabetes would recommend proceeding with echocardiogram and exercise Myoview today. 2. Diabetes mellitus, per Dr. Mccormack 3. Acute renal insufficiency, resolved with IV fluids 4. Hyperkalemia, resolved with IV fluids 5. Leukocytosis, resolved with no chest x-ray evidence of infiltrate. <Hemalatha Oquendo 05/13/21 09:29> [facility] History Medical History: Reports:: Diabetes Mellitus Type 2, Gastroesophageal Reflux Disease(GERD) <Hemalatha Oquendo 05/13/21 09:29> *Have you ever received a pneumonia vaccine?: No <Hemalatha Oquendo 05/13/21 09:29> *Have you received a flu vaccine this season?: Yes <Hemalatha Oquendo 05/13/21 09:29> Other Medical History: Reports: Arthritis <Hemalatha Oquendo 05/13/21 09:29> Other Surgeries: Yes: Appendectomy <Hemalatha Oquendo 05/13/21 09:29> - *Social History Smoking Status: Never smoker <Hemalatha Oquendo
--- NOTE | 2021-05-13 10:45 | PC.NURSE ---
patient back from stress test
[2021-05-13 11:55] LABS: POC Glucose,Bedside 158 (70-110)
[2021-05-13 16:42] LABS: POC Glucose,Bedside 183 (70-110)
--- NOTE | 2021-05-13 17:36 | PC.NURSE ---
PT IS RESTING IN BED WITH FAMILY AT BEDSIDE. NO COMPLAINTS OF CHEST PAIN OR SOA. TOLERATING REGULAR DIET. AMBULATES TO THE BATHROOM. VSS. LUNG SOUNDS CLEAR. ABDOMEN SOFT NON TENDER WITH ACTIVE BOWEL SOUNDS. WILL CONTINUE TO MONITOR.
--- NOTE | 2021-05-15 10:05 | HMH.DCSUM ---
General - General Admission date:: 05/12/21 <EastonJason garcia - 06/15/21 22:47> 05/12/21 <OquendoHemalatha hyde - 05/15/21 10:38> Discharge date: 05/13/21 <Hemalatha Oquendo - 05/15/21 10:38> HPI HPI: Mr. Longo is a 55-year-old male with a history of GERD and previous heat strokes. He presented to the emergency room after experiencing nonradiating midsternal chest pain. He denied being short of breath at the time. He did vomit numerous times during this discomfort and after being in the emergency room. After receiving medication in the ER his pain and nausea were relieved. He had no further chest discomfort, nausea or vomiting. He continued to deny shortness of breath. HPI narrative in [facility] ER: 55-year-old male presented to the emergency department with some chest discomfort. Patient states that has been there for the last 5 hours or so. Patient states that he was outside working in the heat he started getting some tightness in his chest. Patient states that he has had this many times before. States that he has not had many heat strokes in the past. Patient states that he sat down and his symptoms got slightly better. He has a longstanding history of diabetes. States that he is compliant with his medication. States that the pain is more of a tightness and dullness located across his chest. Nonradiating. No associated shortness of breath, cough or hemoptysis. Denies any fevers or chills. No headache or change in vision. No focal weakness. No abdominal pain. States that he did vomit one time. No diarrhea. On reevaluation, the patient continues to endorse some mild chest discomfort. He states that it is intermittent in nature. He did vomit additional time in the emergency department. Troponin has elevated on repeat 3-hour. However no EKG changes. Patient also has some significant renal dysfunction. Likely from dehydration as well as his chronic diabetes. Patient's hyperkalemia did improve with fluids. We did provide insulin. Patient be admitted to hospital for further evaluation and treatment. The above is per ER documentation. With evaluation in the emergency room his initial CBC revealed a white blood cell count of 19,000 and this a.m. was 10,300. Hemoglobin /hematocrit were normal. Blood chemistries showed a sodium of 140 and a potassium of 5.3 with a BUN of 21 and creatinine 1.6. Troponin I's were 0.02, 0.04 and 0.03. Liver function studies were elevated with an AST of 68 and ALT of 94. He received a liter of IV fluids in the ER with repeat labs the following revealing normal electrolytesl with a BUN of 23 and a creatinine of 0.9. Liver function studies were somewhat better with an AST of 63 and an ALT of 81.Chest x-ray showed no acute findings. EKG showed sinus tach and otherwise normal EKG. He has been seen by cardiology with the following documentation: Assessment and Plan for all problems:: 1. Chest pain with minimal elevated troponin during acute renal insufficiency. Troponins have returned to normal along with his renal functions with IV fluids. Due to the patient's longstanding history of diabetes would recommend proceeding with echocardiogram and exercise Myoview today. 2. Diabetes mellitus, per Dr. Mccormack 3. Acute renal insufficiency, resolved with IV fluids 4. Hyperkalemia, resolved with IV fluids 5. Leukocytosis, resolved with no chest x-ray evidence of infiltrate. <Hemalatha Oquendo - 05/15/21 10:38> Hospital Course Hospital Course: After admission patient had no further chest pain and no shortness of breath. He had a nuclear stress test which was positive and thus had a cardiac cath which revealed normal coronary arteries and normal left ventricular end-diastolic pressures. Patient was then discharged in the evening of 05/13/2021 with plans to follow-up with cardiology in 1 week. Condition at discharge was stable and satisfactory. Medications as per medication r
== END 2021-05-13 18:55 | disposition home or self-care (01) ==
LOC: ER 18:36 → 2ND 19:53
PROVIDERS: Internal Medicine; Admitting Provider Family Medicine; Emergency Provider Emergency Medicine; Visit Provider Family Medicine
DX: R07.9 Chest pain, unspecified (principal); E11.9 Type 2 diabetes mellitus without complications; K21.9 Gastro-esophageal reflux disease without esophagitis; Z79.84 Long term (current) use of oral hypoglycemic drugs; Z88.8 Allergy status to other drugs, medicaments and biological substances; Z79.899 Other long term (current) drug therapy; N17.9 Acute kidney failure, unspecified; E87.5 Hyperkalemia; Z88.0 Allergy status to penicillin; Z20.822 Contact with and (suspected) exposure to COVID-19
CPT/HCPCS: 36415; 71045; 78452; 80053; 82009; 82550; 82803; 82962; 83880; 84132; 84484; 85007; 85025; 93005; 93017; 93306; 96365; 96375; 99152; 99284; A9502; C1725; C1769; G0378; J1644; Q9967; U0003

== ENCOUNTER → 2021-06-05 09:21 | Outpatient (CLI) | payer OTHER, SELFPAY | LOC: HMH.CTC 09:22 | PROVIDERS: PCP Family Medicine; Visit Provider Nurse Practitioner | DX: Z20.822 Contact with and (suspected) exposure to COVID-19 (principal) | CPT/HCPCS: C9803; U0003; U0005 ==

== ENCOUNTER 2022-03-07 23:18 | Emergency (ER) | payer SELFPAY ==
[2022-03-07 23:20] VITALS: BP 145/99; PULSE 89; RESP 18; TEMP 36.9; O2SAT 99; BMI 29.2
[2022-03-07 23:40] LABS: Coronavirus 19, PCR Not Detected (NotDetected); Influenza A, PCR Not Detected (NotDetected); Influenza B, PCR Not Detected (NotDetected)
--- NOTE | 2022-03-08 00:04 | CT_ITS ---
PROCEDURE INFORMATION: Exam: CT Abdomen And Pelvis With Contrast Exam date and time: 03/08/2022 12:28 AM Age: 56 years old Clinical indication: Abdominal tenderness and vomiting; Additional info: Abdominal pain vomiting TECHNIQUE: Imaging protocol: Computed tomography of the abdomen and pelvis with contrast. Radiation optimization: All CT scans at this facility use at least one of these dose optimization techniques: automated exposure control; mA and/or kV adjustment per patient size (includes targeted exams where dose is matched to clinical indication); or iterative reconstruction. Contrast material: ISOVUE; Contrast volume: 75 ml; Contrast route: IV; COMPARISON: CT ABDOMEN PELVIS WO CON 04/13/2020 8:12 PM FINDINGS: Lungs: The visualized lung bases are clear. Pleural spaces: There are no pleural effusions. Heart: The visualized portions of the heart are unremarkable. There is no evidence of pericardial fluid collections. Diaphragm: A small hiatal hernia is present. Liver: There is diffuse decrease in hepatic parenchymal density consistent with fatty infiltration. Gallbladder and bile ducts: The gallbladder demonstrates layering density consistent with noncalcified stones or sludge. Pancreas: The pancreas is normal. Spleen: The spleen is normal. Adrenal glands: There is a 10 mm nodular density in the right adrenal gland, not optimally characterized.The adrenal glands are otherwise normal. Kidneys and ureters: There is a sub cm focal right renal hypodensity that cannot be further characterized on the current examination. Statistically, this is likely a cyst. The kidneys are otherwise normal. Stomach and bowel: Apparent mild proximal gastric mural thickening could be on the basis of incomplete distension but cannot exclude gastritis or other inflammatory or infiltrative process. Correlate clinically. The duodenum is unremarkable. Mild diverticulosis is present in the distal colon. There is no evidence of colitis/diverticulitis. Postoperative changes involve the cecum suggesting appendectomy. Small bowel loops appear within range of normal. Appendix: See Stomach and bowel finding. Intraperitoneal space: There is no evidence of free intraperitoneal or pelvic fluid. Vasculature: No abdominal aortic aneurysm. Lymph nodes: There is no evidence of pathologic adenopathy. Urinary bladder: There is mild bladder wall thickening. The bladder is otherwise normal. Reproductive: The prostate demonstrates mild nonspecific enlargement measuring 4.7 x 4.4 cm. The seminal vesicles are normal. Bones/joints: The thoracolumbar spine demonstrates mild degenerative changes at multiple levels. There is very trace retrolisthesis of L1 on L2. 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 Soft tissues: No significant soft tissue edema. There is a small nonobstructing left inguinal hernia. There is a small nonobstructing right inguinal hernia. IMPRESSION: 1. Mild prostatic enlargement. 2. Colonic diverticula without evidence for diverticulitis. 3. 10 mm nodular density in the right adrenal gland, not optimally characterized on current exam, stable dating back to 10/08/2017. Stability suggests benignity. 4. Fatty hepatic infiltration. 5. Sludge or noncalcified stones layering in the gallbladder. 6. Small hiatal hernia. 7. Apparent mild proximal gastric mural thickening could be on the basis of incomplete distension but cannot exclude gastritis or other inflammatory or infiltrative process. Correlate clinically. 8. Minor bladder wall thickening suggesting incomplete distention, chronic outflow obst
[2022-03-08 00:17] LABS: Basophils # 0.1 K/mm3 (0-0.2); Basophils % 1.1 % (0.1-2.0); Eosinophils # 0.1 K/mm3 (0.0-0.4); Eosinophils % 0.7 % (0.1-12.0); Hematocrit 45.5 % (42.0-52.0); Hemoglobin 15.6 g/dL (14.1-18.0); Lymphocytes # 2.2 K/mm3 (0.7-4.5); Lymphocytes % 19.5 % (10-50); Mean Corpuscular HGB Conc 34.4 g/dL (31.8-35.4); Mean Corpuscular Hemoglobin 31.1 pg (27.0-31.2); Mean Corpuscular Volume 90.4 fl (80-94); Mean Platelet Volume 7.7 fl (7.4-10.4); Monocytes # 0.4 K/mm3 (0.1-1.0); Monocytes % 3.9 % (1.7-9.3); Neutrophils # 8.5 K/mm3 (1.8-7.8); Platelet Count 306 K/mm3 (142-424); Red Blood Count 5.03 M/mm3 (4.60-6.20); Red Cell Distribution Width 13.3 % (11.5-17.5); White Blood Count 11.4 K/mm3 (4.8-10.8)
[2022-03-08 00:20] LABS: Alanine Aminotransferase 38 U/L (12-78); Albumin Level 4.6 g/dl (3.5-5.0); Albumin/Globulin Ratio 1.4 (1.1-1.8); Alkaline Phosphatase 97 U/L (38-126); Amylase 82 U/L (30-110); Anion Gap 16.1 mEq/L (5-15); Aspartate Amino Transferase 38 U/L (17-59); Bilirubin,Total 1.1 mg/dl (0.2-1.3); Blood Urea Nitrogen 30 mg/dl (9-20); Calcium 9.3 mg/dl (8.4-10.2); Carbon Dioxide 21 mmol/L (22.0-30.0); Chloride 103 mmol/L (98-107); Creatinine Clearance Estimated 107 mL/min (50-200); Estimated Glomerular Filt Rate 87 ml/min (>60); GFR (African American) 105 ML/MIN (>60); Globulin 3.3 g/dL (1.3-3.2); Glucose 193 mg/dl (74-100); Lipase 121 U/L (23-300); Potassium 4.1 mmoL/L (3.5-5.1); Sodium 136 mmol/L (136-145); Total Protein,Serum 7.9 g/dl (6.3-8.2)
[2022-03-08 00:25] LABS: C-Reactive Protein 2.6 mg/L (0-4)
--- NOTE | 2022-03-08 00:27 | HMH.EDNVD ---
ED Disposition Clinical Impression: Abdominal pain Qualifiers: Abdominal location: epigastric Qualified Code(s): R10.13 - Epigastric pain Disposition: Home, Self-Care Condition on Discharge: Good Instructions: DI for Acute Abdominal Pain Additional Instructions: see pcp for follow up Referrals: Provider,Referral, [Primary Care Provider] - - Critical Care Critical Care Time: No Attestation: On 03/07/22, the high probability of a clinically significant, sudden or life threatening deterioration of the following system(s) required my full and direct attention, intervention and personal management. The time I documented below is in addition to time spent performing reported procedures but includes the following listed in this critical care notation. Medical Decision Making - Medical Records Medical records reviewed: Yes: I reviewed the patient's medical records. - Jah Inquiry Pt receiving controlled substance: No Vital Signs: 03/07/22 23:20 Temperature 98.4 F Temperature Source Oral Pulse Rate [Left Radial] 89 Respiratory Rate 18 Blood Pressure [Right Arm] 145/99 H Blood Pressure Mean [Right Arm] 114 Blood Pressure Source [Right Arm] Automatic Cuff Blood Pressure Position [Right Arm] Sitting 02 Sat by Pulse Oximetry 99 Oxygen Delivery Method Room Air - Lab Data Lab results reviewed: Yes: I reviewed the patient's lab results. Lab Results 03/07/22 23:28: SARS-CoV-2 (PCR) Not detected, Influenza A Untype (PCR) Not detected, Influenza Type B (PCR) Not detected 03/08/22 00:01: WBC 11.4 H, RBC 5.03, Hgb 15.6, Hct 45.5, MCV 90.4, MCH 31.1, MCHC 34.4, RDW 13.3, Plt Count 306, MPV 7.7, Neut % (Auto) 75.0, Lymph % (Auto) 19.5, [place] % (Auto) 3.9, Eos % (Auto) 0.7, Baso % (Auto) 1.1, Neut # (Auto) 8.5 H, Lymph # (Auto) 2.2, [place] # (Auto) 0.4, Eos # (Auto) 0.1, Baso # (Auto) 0.1, ESR 11 03/08/22 00:01: Sodium 136, Potassium 4.1, Chloride 103, Carbon Dioxide 21 L, Anion Gap 16.1 H, BUN 30 H, Creatinine 0.90, Estimated Creat Clear 107, Estimated GFR 87, Est GFR ( Amer) 105, Glucose 193 H, Calcium 9.3, Total Bilirubin 1.1, AST 38, ALT 38, Alkaline Phosphatase 97, C-Reactive Protein 2.6, Total Protein 7.9, Albumin 4.6, Globulin 3.3 H, Albumin/Globulin Ratio 1.4, Amylase 82, Lipase 121, Procalcitonin 0.070 03/08/22 00:01: Lactate 1.9 Result diagrams: 03/08/22 00:01 03/08/22 00:01 Orders (Tests/Meds): ED MEDICATIONS Generic Name Dose Route Start Last Admin Trade Name Freq PRN Reason Stop Dose Admin Sodium Chloride 1,000 mls @ 999 mls/hr 03/07/22 23:45 03/08/22 00:06 Sod Chlor 0.9% 1000ml Bag IV 03/08/22 00:45 999 mls/hr .Q1H1M RON Administration Sodium Chloride 1,000 mls @ 999 mls/hr 03/08/22 01:15 03/08/22 01:19 Sod Chlor 0.9% 1000ml Bag IV 03/08/22 02:15 999 mls/hr .Q1H1M RON Administration Sodium Chloride 8 ml 03/07/22 23:41 Sodium Chloride 0.9% 10ml Vial IV 04/06/22 23:40 NEEDED PRN dilute pepcid Sodium Chloride 10 ml 03/08/22 00:01 Sodium Chloride 0.9% 10ml Flush Syringe IV 04/07/22 00:00 NEEDED PRN Maintain IV Site Discontinued Medications Generic Name Dose Route Start Last Admin Trade Name Freq PRN Reason Stop Dose Admin Famotidine 20 mg 03/07/22 23:41 03/08/22 00:06 Famotidine 20mg/2ml Vial IV 03/07/22 23:42 20 mg ONCE ONE Administration Iopamidol 75 ml 03/08/22 00:39 03/08/22 00:40 Iopamidol-370 (76%);100ml Bottle IV 03/08/22 00:40 75 ml ONCE ONE Administration Metoclopramide HCl 10 mg 03/07/22 23:41 03/08/22 00:06 Metoclopramide Hcl 10mg/2ml Vial IVP 03/07/22 23:42 10 mg ONCE ONE Administration Ondansetron HCl 4 mg 03/07/22 23:41 03/08/22 00:06 Ondansetron 4mg/2ml Vial IV 03/07/22 23:42 4 mg ONCE ONE Administration Sodium Chloride 10 ml 03/08/22 00:39 03/08/22 00:40 Sodium Chloride 0.9% 10ml Syr (Rad Only) IV 03/08/22 00:40 10 ml ONCE ONE Administration ORDERS
--- NOTE | 2022-03-08 00:28 | PC.NURSE ---
Pt gone to RAD
[2022-03-08 00:30] LABS: Lactic Acid 1.9 mmol/L (0.7-2.1)
--- NOTE | 2022-03-08 00:37 | PC.NURSE ---
Pt back from RAD
[2022-03-08 00:43] LABS: Erythrocyte Sedimentation Rate 11 mm/hr (0-20)
[2022-03-08 01:30] VITALS: BP 135/74; PULSE 82; O2SAT 100
[2022-03-08 02:02] VITALS: BP 138/88; O2SAT 98
[2022-03-08 02:07] LABS: Microscopic, Urine URINE MICROSCOPIC (MICROSCOPIC)
[2022-03-08 02:17] LABS: Appearance,Urine CLEAR (Clear); Bilirubin,Urine Negative (Negative); Blood, Urine Negative (Negative); Color,Urine YELLOW (Yellow); Glucose,Urine (UA) Negative (Negative); Ketones,Urine 2+ (Negative); Leukocyte Esterase,Urine Negative (Negative); Nitrate,Urine Negative (Negative); Protein,Urine Negative (Negative); Urobilinogen,Urine 0.2 EU/dl (0.2)
[2022-03-08 02:20] LABS: Squamous Epithelial Cell,Urine Occasional #/hpf (0-5)
[2022-03-08 02:21] VITALS: BP 138/88; PULSE 73; RESP 18; TEMP 36.9; O2SAT 99
--- NOTE | 2022-03-08 02:36 | PC.NURSE ---
UPON DISCHARGE- PT STATES HE JUST WANTS TO GO STRAIGHT TO SURGERY. IT WAS EXPLAINED TO PATIENT THAT THE MD HAD DETERMINED HE WAS SAFE TO GO HOME. PT WAS INSTRUCTED TO GO SEE FAMILY DOCTOR OR SURGEON AND TO MAKE AN APPT FIRST THING ON WEDNESDAY MORNING. PT ALSO INSTRUCTED TO NOT TAKE NAPROXSYN PER MD. PT REPORTS THAT HE DOES NOT HAVE A DOCTOR. LIST GIVEN. PT ALSO MADE AWARE THAT MD OFFICES ARE NOT OPEN TO MAKE APPT FOR THEM DURING THE NIGHT.
== END 2022-03-08 02:35 | disposition home or self-care (01) ==
PROVIDERS: Emergency Provider Emergency Medicine
DX: R10.13 Epigastric pain (principal); R11.2 Nausea with vomiting, unspecified; Z20.822 Contact with and (suspected) exposure to COVID-19; K57.92 Diverticulitis of intestine, part unspecified, without perforation or abscess without bleeding; K21.9 Gastro-esophageal reflux disease without esophagitis; E11.9 Type 2 diabetes mellitus without complications; M19.90 Unspecified osteoarthritis, unspecified site; Z79.1 Long term (current) use of non-steroidal anti-inflammatories (NSAID); Z79.84 Long term (current) use of oral hypoglycemic drugs; Z79.899 Other long term (current) drug therapy; Z88.0 Allergy status to penicillin; Z88.5 Allergy status to narcotic agent; Z88.6 Allergy status to analgesic agent
CPT/HCPCS: 74177; 80053; 81001; 82150; 83605; 83690; 84145; 85025; 85651; 86140; 87040; 96361; 96374; 96375; 99285; C9803; J2405; Q9967; U0003; U0005

== ENCOUNTER 2024-04-26 18:03 | Emergency (ER) | payer SELFPAY ==
[2024-04-26 18:04] VITALS: BP 152/95; PULSE 95; RESP 18; TEMP 36.8; O2SAT 97; BMI 29.2
[2024-04-26 18:10] VITALS: BP 152/95; PULSE 81; O2SAT 98
--- NOTE | 2024-04-26 18:24 | [facility].EDGENADL ---
Discharge Plan Disposition Patient Disposition: Home, Self-Care Prescriptions Prescriptions: No Action garlic 1 EACH tablet 1 each PO HS omega-3 fatty acids-fish oil 1 EACH capsule 1 each PO DAILY naproxen 500 MG tablet 1,000 mg PO BID saw palmetto 450 MG capsule 1 cap PO DAILY metformin 750 MG tablet extended release 24 hr 1,500 mg PO BID ascorbic acid (vitamin C) 1,000 MG tablet 1,000 mg PO HS omeprazole 20 MG capsule,delayed release(DR/EC) 20 mg PO HS cholecalciferol (vitamin D3) 3,000 UNIT tablet 3,000 unit PO DAILY Referrals Follow up/Referrals: Provider,MD Manuel [Primary Care Provider] - See instructions Joselito Evans MD [Staff Physician] - See instructions Activity Restrictions/Add. Instructions Additional Instructions/Restrictions: As discussed please take 15 units subcutaneously of your insulin glargine. You may take this daily until you are able to be seen by a new primary care doctor, Dr. Evans. Please call tomorrow and make your next available appointment. No other emergency identified today. Clinical Impressions Clinical Impression: Diabetes mellitus, new onset Instructions Patient Instructions: DI for Hyperglycemia -- Adult Print Language Print Language: Persian Discharge ED Provider: Moreno Yi General Adult HPI General Chief complaint: Hyper/Hypoglycemia Stated complaint: sugar level 600 Time Seen by Provider: 04/26/24 18:16 History of Present Illness HPI narrative: Patient is a 58-year-old male states he is previously healthy presents today with polyuria polyphagia polydipsia and 20 pound weight loss and fatigue over the last 2 months. His family member checked an Accu-Chek which read high. No history of diabetes. Denies any other past medical problems. Related Data Home Medications ?Medication ?Instructions ?Recorded ?Confirmed ascorbic acid (vitamin C) 1,000 mg 1,000 mg PO HS Supplement 10/08/17 05/22/21 tablet cholecalciferol (vitamin D3) 75 3,000 unit PO DAILY Supplement 10/08/17 05/22/21 mcg (3,000 unit) tablet omeprazole 20 mg capsule,delayed 20 mg PO HS Heartburn 10/08/17 05/22/21 release garlic 1 each PO HS Supplement 05/12/21 05/22/21 omega-3 fatty acids-fish oil 340 1 each PO DAILY Supplement 05/12/21 05/22/21 mg-1,000 mg capsule metformin 750 mg tablet,extended 1,500 mg PO BID Diabetes 05/13/21 05/22/21 release 24 hr naproxen 500 mg tablet 1,000 mg PO BID PAIN 05/13/21 05/22/21 saw palmetto 450 mg capsule 1 cap PO DAILY Supplement 05/13/21 05/22/21 Allergies Allergy/AdvReac Type Severity Reaction Status Date / Time hydrocodone Allergy Verified 05/22/21 11:27 Penicillins Allergy Verified 05/22/21 11:27 [facility] Disclaimer: The information contained in this section may have been updated after the patient was seen, as this information can be updated by other users. Social History Smoking Status: Never smoker alcohol intake: never current occupational status: employed Travel in the last 8 weeks: Inside the [place] household members: spouse housing: house ROS Obtained: Yes All systems reviewed & no additional complaints except as documented Physical Exam General General appearance: alert and in no apparent distress Respiratory Respiratory exam: Present normal lung sounds bilaterally Cardiovascular Cardiovascular exam: Present regular rate and normal rhythm Abdominal Exam Abdominal exam: Present soft; Absent distention or tenderness Neurological Exam Neurological exam: Present alert and oriented X3 Medical Decision Making Jah Inquiry Pt receiving controlled substance: No Vital Signs: 04/26/24 18:04 04/26/24 18:10 04/26/24 18:30 Temperature 98.2 F Temperature Source Oral Pulse Rate 81 92 H Pulse Rate [Left Radial] 95 H Respiratory Rate 18 Blood Pressure 152/95 H 122/86 Blood Pressure [Right Arm] 152/95 H Blood Pressure Mean [Right Arm] 114 Blood Pressure Source [Right Arm] Automatic Cuff Blood Pressure Position [Right Arm] Sitting 02 Sat by Pulse Oximetry 97 98 95 Oxygen Delivery Method Room Air Room Air Room Air 04/26/24 19:00 04/26/24 19:30 Temperature Temperature Source Pulse Rate 80 81 Pulse Rate [Left Radial] Respiratory Rate Blood Pressure 111/81 121/79 Blood Pressure [Right Arm] Blood Pressure Mean [Right Arm] Blood Pressure Source [Right Arm] Blood Pressure Position [Right Arm] 02 Sat by Pulse Oximetry 96 95 Oxygen Delivery Method Room Air Lab Data Lab results reviewed: Yes I reviewed the patient's lab results. Lab Results 04/26/24 18:14: WBC 7.4, RBC 5.08, Hgb 15.6, Hct 46.1, MCV 90.8, MCH 30.7, MCHC 33.9, RDW 13.4, Plt Count 222, MPV 8.4, Neut % (Auto) 60.3, Lymph % (Auto) 33.8, [place] % (Auto) 3.8, Eos % (Auto) 1.3, Baso % (Auto) 0.9, Neut # (Auto) 4.5, Lymph # (Auto) 2.5, [place] # (Auto) 0.3, Eos # (Auto) 0.1, Baso # (Auto) 0.1, Sodium 133 L, Potassium 4.1, Chloride 99, Carbon Dioxide 25, Anion Gap 13.1, BUN 19, Creatinine 0.60 L, Estimated Creat Clear 157, Estimated GFR 137, Est GFR ( Amer) 166, Glucose 425 H*, Hemoglobin A1c 13.9 H, Calcium 9.8, Phosphorus 4.3, Magnesium 1.7, Total Bilirubin 0.7, AST 32, ALT 27, Alkaline Phosphatase 109, Total Protein 7.9, Albumin 4.5, Globulin 3.4 H, Albumin/Globulin Ratio 1.3 04/26/24 18:21: VBG pH 7.40, VBG pCO2 38.4, VBG pO2 46.7 H, VBG HCO3 23.1, VBG Total CO2 24.3, VBG O2 Saturation 82.2 H, VBG Base Excess -1.7, VBG Lactic Acid 1.4 04/26/24 18:14 04/26/24 18:14 Orders (Tests/Meds): ED MEDICATIONS Generic Name Dose Route Start Last Admin Trade Name Freq PRN Reason Stop Dose Admin Lactated Ringer's 1,000 mls @ 999 mls/hr 04/26/24 18:30 04/26/24 18:39 Lactated Ringer's 1000 Ml Bag IV 04/26/24 20:30 999 mls/hr .Q1H1M RON Administration Discontinued Medications Generic Name Dose Route Start Last Admin Trade Name Freq PRN Reason Stop Dose Admin Insulin Glargine 15 unit 04/26/24 19:40 Insulin Glargine 100 Units/Ml 3ml Flexpen SQ 04/26/24 19:41 ONCE ONE ORDERS Category Date Time Status CBC w/Auto Diff [Complete Blood Count Auto Diff] Stat Lab 04/26/24 18:14 Completed CMP [Comprehensive Metabolic Panel] Stat Lab 04/26/24 18:14 Completed Hemoglobin A1C Stat Lab 04/26/24 18:14 Completed Magnesium Stat Lab 04/26/24 18:14 Completed Phosphorous Stat Lab 04/26/24 18:14 Completed UA [Urinalysis and Microscopic] Stat Lab 04/26/24 19:40 Received Venous Blood Gas Stat RT 04/26/24 18:21 Completed Medical Decision Narrative: Patient is a 58-year-old male who is nontoxic and well-appearing on my exam presents today with polyuria polyphagia polydipsia elevated blood sugar and weight loss. This is all consistent with a new diagnosis of diabetes with catabolic features. IV fluids will be initiated basic blood work including venous blood gas CMP magnesium phosphorus urinalysis have been obtained have also sent an A1c. He has no primary care doctor. He may need to be admitted for glucose management and education but will discuss this with him further after his workup is obtained. His weight loss appears to be secondary to the catabolic features. Reassessment 745 patient still appears very well labs unremarkable aside from hyperglycemia no evidence of DKA or other metabolic emergency. I discussed the case with Dr. Charbel Sauceda who is hospital medicine on-call. We will give the patient 15 units of subcutaneous glargine and will give the patient the insulin pen advised him to do this daily to get a basal rate of insulin that is going on the patient so he can be seen by new primary care physician. Dr. Evans is accepting new patients and has been advised to call and make an appointment next available appointment and continue to take this glargine until advised by primary care doctor differently. Critical Care Critical Care Time Critical Care Time: No
[2024-04-26 18:30] VITALS: BP 122/86; PULSE 92; O2SAT 95
[2024-04-26 18:34] LABS: Lactate Venous 1.4 mmol/L (0.4-2.0); VBG Base Excess -1.7 mmol/L (-2.4-2.3); VBG HCO3 23.1 mmol/L (23-30); VBG Oxygen Saturation 82.2 % (50-70); VBG PCO2 38.4 mmol/L (35-51); VBG PO2 46.7 mmol/L (28-40); VBG Total CO2 24.3 mmol/L (23-27)
[2024-04-26 18:34] LABS: Basophils # 0.1 K/mm3 (0-0.2); Basophils % 0.9 % (0.1-2.0); Eosinophils # 0.1 K/mm3 (0.0-0.4); Eosinophils % 1.3 % (0.1-12.0); Hematocrit 46.1 % (42.0-52.0); Hemoglobin 15.6 g/dL (14.1-18.0); Lymphocytes # 2.5 K/mm3 (0.7-4.5); Lymphocytes % 33.8 % (10-50); Mean Corpuscular HGB Conc 33.9 g/dL (31.8-35.4); Mean Corpuscular Hemoglobin 30.7 pg (27.0-31.2); Mean Corpuscular Volume 90.8 fl (80-94); Mean Platelet Volume 8.4 fl (7.4-10.4); Monocytes # 0.3 K/mm3 (0.1-1.0); Monocytes % 3.8 % (1.7-9.3); Neutrophils # 4.5 K/mm3 (1.8-7.8); Neutrophils % 60.3 % (37.0-80.0); Platelet Count 222 K/mm3 (142-424); Red Blood Count 5.08 M/mm3 (4.60-6.20); Red Cell Distribution Width 13.4 % (11.5-17.5); White Blood Count 7.4 K/mm3 (4.8-10.8)
[2024-04-26 18:38] LABS: Alanine Aminotransferase 27 U/L (12-78); Albumin Level 4.5 g/dl (3.5-5.0); Albumin/Globulin Ratio 1.3 (1.1-1.8); Alkaline Phosphatase 109 U/L (38-126); Anion Gap 13.1 mEq/L (5-15); Aspartate Amino Transferase 32 U/L (17-59); Bilirubin,Total 0.7 mg/dl (0.2-1.3); Blood Urea Nitrogen 19 mg/dl (9-20); Calcium 9.8 mg/dl (8.4-10.2); Carbon Dioxide 25 mmol/L (22.0-30.0); Chloride 99 mmol/L (98-107); Creatinine Clearance Estimated 157 mL/min (50-200); Estimated Glomerular Filt Rate 137 ml/min (>60); GFR (African American) 166 ML/MIN (>60); Globulin 3.4 g/dL (1.3-3.2); Magnesium 1.7 mg/dl (1.6-2.3); Phosphorous 4.3 mg/dl (2.5-4.5); Potassium 4.1 mmoL/L (3.5-5.1); Sodium 133 mmol/L (136-145); Total Protein,Serum 7.9 g/dl (6.3-8.2)
[2024-04-26] MEDS: LACTATED RINGERS 1000ML 1,000 ML 999 ML IV ×2 (18:39→20:04)
[2024-04-26 18:44] LABS: Glucose 425 mg/dl (74-100)
--- NOTE | 2024-04-26 18:45 | PC.NURSE ---
notified of Glucose of 425.
[2024-04-26 19:00] VITALS: BP 111/81; PULSE 80; O2SAT 96
[2024-04-26 19:21] LABS: Hemoglobin A1C 13.9 % (4.0-6.0)
[2024-04-26 19:30] VITALS: BP 121/79; PULSE 81; O2SAT 95
[2024-04-26 19:45] LABS: Microscopic, Urine URINE MICROSCOPIC (MICROSCOPIC)
[2024-04-26 19:49] LABS: Appearance,Urine CLEAR (Clear); Bilirubin,Urine Negative (Negative); Blood, Urine Negative (Negative); Color,Urine YELLOW (Yellow); Glucose,Urine (UA) 3+ (Negative); Ketones,Urine TRACE (Negative); Leukocyte Esterase,Urine Negative (Negative); Nitrate,Urine Negative (Negative); Protein,Urine Negative (Negative); Urobilinogen,Urine 0.2 EU/dl (0.2)
--- NOTE | 2024-04-26 20:21 | PC.NURSE ---
Insulin pen sent to ER from 2nd floor [facility] with 10 needles for administration.
[2024-04-26] MEDS: INSULIN GLARGINE 100 UNITS/ML 3ML FLEXPEN 15 UNIT SQ (20:29)
[2024-04-26 21:08] VITALS: BP 116/78; PULSE 65; RESP 16; TEMP 36.6; O2SAT 98
== END 2024-04-26 21:14 | disposition home or self-care (01) ==
PROVIDERS: Emergency Provider Student in an Organized Health Care Education/Training Program
DX: E11.65 Type 2 diabetes mellitus with hyperglycemia (principal); R63.4 Abnormal weight loss; R53.83 Other fatigue
CPT/HCPCS: 80053; 81001; 82803; 83036; 83735; 84100; 85025; 96360; 99284; J7120